=== PATIENT | male | born 1975 | race Caucasian/White ===

== ENCOUNTER 2016-11-30 21:58 | Inpatient (IN) | payer OTHER ==
[~2016-11-30] VITALS: Ht 182.9 cm; Wt 135.0 kg
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
--- NOTE | ~2016-11-30 | OR ---
PATIENT'S NAME: RODRÍGUEZ HEARN [facility] AGE: 41 Y [address] ROOM: [place] [address] LOCATION: [facility] ADMIT DATE: 11/30/2016 OR/Procedure Report DISCHARGE DATE: FAMILY PHYSICIAN: PHYSICIAN, UNKNOWN ATTENDING PHYSICIAN: ASHLEY GODOY V SURGEON: Rod Jenkins MD WEBSITE/BLOG EDITOR: Jeremiah Dunne PA-C. DATE OF PROCEDURE: 12/01/2016 PREOPERATIVE DIAGNOSIS: Right distal 1/3 tibia fracture with comminution and displacement in the presence of a previous well-healed midshaft fracture of the tibia and fibula. POSTOPERATIVE DIAGNOSIS: Right distal 1/3 tibia fracture with comminution and displacement in the presence of a previous well-healed midshaft fracture of the tibia and fibula. PROCEDURE: 1. Right tibial intramedullary nailing. 2. Use of intraoperative fluoroscopy, less than 1 hour. ANESTHESIA: General endotracheal anesthesia with peripheral nerve block. FLUIDS: See Anesthesia report. ESTIMATED BLOOD LOSS: Minimal. TOURNIQUET: Right proximal thigh, 250 mmHg. SPECIMEN: None. COMPLICATIONS: None. DISPOSITION: Stable in PACU. COUNTS: All counts correct. IMPLANTS: Synthes tibial intramedullary nail, 10 mm in diameter, 375 mm in length. INDICATIONS: Mr. Hearn is a pleasant 41-year-old gentleman who underwent the noted procedures above. The risks, benefits, and alternatives of pursuing surgical intervention were discussed with the patient in detail. The patient elected to proceed with surgery. Anesthesia was consulted for their perioperative evaluation of the patient. I marked the patient's right lower extremity indicating the correct surgical site. DESCRIPTION OF PROCEDURE: The patient was brought from the holding area to PATIENT'S NAME: RODRÍGUEZ HEARN [facility] AGE: 41 Y [address] ROOM: [address] [address] LOCATION: [facility] ADMIT DATE: 11/30/2016 OR/Procedure Report DISCHARGE DATE: FAMILY PHYSICIAN: PHYSICIAN, UNKNOWN ATTENDING PHYSICIAN: ASHLEY GODOY V the operating room. A time-out was performed. General endotracheal anesthesia was administered. Clindamycin antibiotic was administered for perioperative prophylaxis. The right lower extremity was then prepped and draped in a sterile fashion. I turned my attention to the right hip. An Esmarch was used to exsanguinate the limb. The tourniquet was inflated to 250 mmHg. I began with using a previous incision over the medial aspect of the knee through skin and subcutaneous tissue. I then placed a guidewire and confirmed its position fluoroscopically. I used an opening reamer to open up the proximal femoral canal. I used a ball-tip guidewire to negotiate down the fracture site. The bone was quite sclerotic, seeing that there had been a previous tibial nail in place and remodeling of an old fracture with subsequent removal of previous hardware. I confirmed the position of the pin in the tibia. I then turned my attention to the distal femur and then reamed sequentially up to 11.[address] a 10 nail. The nail was placed and its position was confirmed fluoroscopically. I drilled for, measured, and placed 2 distal interlocking screws in the nail to achieve distal fixation. I subsequently backslapped on the nail proximally to close down the fracture at the fracture site and achieved good compression fluoroscopically. I subsequently placed 2 static interlocking screws in the proximal nail by subsequently drilling, measuring, and placing them and confirming their position fluoroscopically. Final fluoroscopic images revealed evidence of a successful right tibial intramedullary nailing. Once the tibia was out to length, the fibula for the most part was also out to length and the fibula fracture was left in place. The visual anatomic alignment of the limb was within normal limits. There was a previous swelling of the leg as well as a shortening from his previous surgical intervention. All the wounds were then copiously irrigated with a normal sterile saline solution and closed in layers. The tourniquet was then let down and the leg reperfused. The patient was then transferred from to operating table onto the stretcher. Anesthesia did place a peripheral nerve block. He was subsequently extubated and brought to recovery room in stable condition. PATIENT'S NAME: RODRÍGUEZ HEARN [facility] AGE: 41 Y [address] ROOM: [address] [place] [id number] LOCATION: [facility] ADMIT DATE: 11/30/2016 OR/Procedure Report DISCHARGE DATE: FAMILY PHYSICIAN: PHYSICIAN, UNKNOWN ATTENDING PHYSICIAN: ASHLEY GODOY V There were no intraoperative complications noted. Of note, my PA, Jeremiah Dunne PA-C, played an integral role in the intraoperative care of this patient. This included preoperative positioning, intraoperative expert retraction, and closing and dressing functions. IMPRESSION: The patient is status post the noted procedures above. PLAN: The patient will be toe-touch weightbearing on the right lower extremity. Postoperative antibiotics will be administered per routine. He will be placed into a CAM walker boot. He was instructed to rest, ice, and elevate the leg. Postoperative antibiotics will be routine in nature. The Hospitalist Service will continue to manage the patient's concomitant medical comorbidities. Physical Therapy and Occupational Therapy will be consulted for early ambulation and prevention of deconditioning. I will continue to follow the patient closely in the postoperative period. MD SYLVIA ROBB/ashly /[id number] d: 12/01/168 t: 12/02/16 0855, OPERATIVE SUMMARY
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
[2016-12-01] MEDS ORDERED: FLEXERIL10 MG PO (00:12)
[2016-12-01] MEDS ORDERED: ULTRAM50 MG PO (00:13)
[2016-12-01] MEDS ORDERED: PRILOSEC20 MG PO (00:13)
--- NOTE | 2016-12-01 03:38 | NUR ---
Significant Event: PATIENT ALERT AND ORIENTED X 3. VSS. NPO FOR OR. VOIDING WITHOUT DIFFICULTY. BEDREST - REPOSTIONS SELF. IV INTACT TO LEFT ANTECUB. AIR SPLINT ON RIGHT LOWER LEG. RIGHT LOWER EXT ELEVATED WITH KNEE GATCH AND PILLOWS - MAXIMALLY ELEVATE AND ICE. [facility]'S Q 2 HOURS, REPORT ANY DEFECITS TO DR. ADAM. WATCH CLOSELT FOR COMPARTMENT SYNDROME. PAIN NOW CONTROLLED WITH MORPHINE DIESEL TRUCK TECHNICIAN AND FLEXERIL X 1 AT 0100. CSM'S WNL AT THIS TIME. PLEASANT AND COOPERTIVE WITH CARES. Follow up: OR
--- NOTE | 2016-12-01 19:12 | NUR ---
Significant Event:VSS, ETCO2 monitoring due to hx sleep apnea, O2 at 2L/NC. Lungs clear/diminshed. IS up to 2500 x 10. Pt on MS SLITTER SCORER 05/27/ no lockout. Pt rates pain 7-12/25. Remains on bedrest. Acewrap dsg is CDI, toes warm,tera well unable to assess pulses due to leg brace/dsgs. Sips of water. Follow up:Continue post op recovery. Monitor breathing, pain, I/O
--- NOTE | 2016-12-02 04:15 | NUR ---
Significant Event: Alert/oriented x3. Morphine SPRINKLER REPAIR TECHNICIAN 1mg dose/10 minute lockout, kept at same rate due to pain -12/25. Valium 2.5 mg IVP at 0200, will give another after 0. Ice applied. Can wiggle toes, warm, feels sensation. Voids well per urinal. VSS on 2 LPM per nasal cannula, ETCO2 mostly upper 30s to mid 40s. Dressing C/D/I. Watch closely for compartment syndrome. Toe Touch right. Shifts well in bed per self. Keep extremity raised. Follow up:
--- NOTE | 2016-12-02 05:00 | NUR ---
Ordered for CPAP 10 for gloria, talked with Pt around 2200. Pt refused at that time, stated that he did not wear a CPAP at home. Checked ETCO2 t/o shift, 30s-45. Continued t/o night on 2L maintained sats>90%.
[2016-12-02 05:33] LABS: BASOPHIL # 0.1 K/uL (0.0-0.2); BASOPHIL % 0.5 %; EOSINOPHIL # 0.2 K/uL (0.0-0.5); EOSINOPHIL % 2.5 %; HEMATOCRIT 36.4 % (37.0-53.0); HEMOGLOBIN 12.4 g/dL (12.0-17.0); IMMATURE GRANULOCYTE % 0.3 %; LYMPHOCYTE # 1.5 K/uL (0.8-4.0); LYMPHOCYTE % 15.8 %; MCH 31.5 pg (27.0-34.0); MCHC 34.1 gm/dL (32.0-36.5); MCV 92.4 fl (83.0-98.0); MONOCYTE # 0.8 K/uL (0.0-1.0); MONOCYTE % 8.3 %; NEUTROPHIL # (ANC) 6.8 K/uL (1.4-9.0); NEUTROPHIL % 72.6 %; NRBC % 0 /100WBC (0-0.00); PLATELET COUNT 165 K/uL (150-450); RBC 3.94 M/uL (4.00-6.00); RDW-CV 13.5 % (11.9-14.6); WBC 9.4 K/uL (4.0-11.0)
--- NOTE | 2016-12-02 10:23 | NUR ---
SPOKE TO PATIENT AND HIS SISTER AT THE BEDSIDE. INTRODUCED CM AND OUR ROLE. PATIENT AND HIS SISTER ARE UNSURE AT THIS TIME OF WHAT HIS DISCHARGE NEEDS WILL BE. CM WILL CONT TO FOLLOW NEEDED.
--- NOTE | 2016-12-02 18:57 | NUR ---
Significant Event:VSS, ETCO2 44-48, remains on 2L O2, sats 94-98. Pt has hx of sleep apnea, and is to be on BIPAP during times of sleep (naps & HS). Rates pain 6-10/10. Percocet 1 tab x 3 doses last one at 1635, Valium 2.5mg IV x 3 doses last one at 1635. Oxycontin 10mg at 0900, since dc'd. MS BANK COURIER 1mg off at 1630. Pt had 19mg, 20 demands in past 12hours. Pt states pain is stabbing, and throbbing at times. IBU 600mg at 1330 for headache with reported relief. Pt acewrap has old drainage at heel area. No increase in drainage today. Pt tx with SBA of 1, GB/Walker, Cam boot. Cam boot maybe off while in bed. FOB is to be elevated at all times. ICE to extremity. Toes warm, wiggle. Unable to asses pulses due dressings. Up in chairs for meals. Voids per urinal, last BM 11/30. Pt has hx of constipation. Started on lax today. Ate fair. Tx to Room 6326, for BIPAP use at sleep. Report to Mateus TRACY. BIPAP therapy Follow up:
--- NOTE | 2016-12-02 23:20 | NUR ---
Pt refused Bipap. Explained risk and benefits of using vs not using Bipap, still refused. Continued on ETCO2, will continue to monitor
--- NOTE | 2016-12-03 04:12 | NUR ---
Pt on 2L NC majority of shift, ETCO2 40s. Around 0330 ETCO2 increased>50. Discussed with Pt the need for Bipap. Placed on Bipap 16/7 and titrated up to 20/10 at 30% Fio2. Will continue to monitor as tolerated.
--- NOTE | 2016-12-03 05:54 | NUR ---
Significant Event: Patient A/O x 3. Perrl. Denies N/T. Wiggles toes to RLE. Pain to RLE, percocet last given at 0500 and Valium last given at 0240. 1 L of 02 while awake. 2 L NC while sleeping, Bipap put on at 0300. ETCO2 monitor on. BS active. Voids per urinal. Keep RLE elevated. Camboot on when up. Family at bedside. Follow up: Continue to monitor ETCO2
--- NOTE | 2016-12-03 12:10 | NUR ---
Significant Event:PT IS AAOX3. C/O TINGLING TO R) LEG. GOOD CAP REFILL. WIGGLES TOES. TOOK PERCOCET AND IBUPROFEN FOR PAIN. ALSO HAD MOM AND ZOFRAN TODAY. NO BM YET. ACTIVE BS. USES URINAL WITH NO ISSUE. UP TO CHAIR 1A PIVOT. TTWB TO R). ON 2L NC. DID TRY TO WEAN TO RA. SATS WENT DOWN TO 84%. POSSIBLE DC TOMORROW. GAVE JILLIAN FROM 3N REPORT. PT IS NOW IN ROOM [id number] Follow up:
--- NOTE | 2016-12-03 13:00 | NUR ---
RECEIVED REFERRAL THAT PATIENT WILL NEED DME WITH PLAN FOR DISCHARGE TOMORROW. I MEET WITH PATIENT AND HIS SISTER AT THE BEDSIDE. PATIENT IS PLANNING ON GOING HOME WITH HELP FROM FAMILY. I PRESENTED TO THEM THE OPTION OF C BUT THEY DECLINED. PATIENT'S SISTER IS PLANNING ON GETTING RODRÍGUEZ A FRONT WHEELED WALKER CLOSER TO HOME THEY DO NOT WANT TO PURCHASE ONE AND SHE TELLS ME THAT SHE CAN KAW IT. THEY WOULD LIKE TO HAVE ME ARRANGE FOR CRUTHCES. I EXPLAINED TO THEM THAT INSURANCE DOES NOT COVER ANY DME IT WOULD BE OUT OF POCKET EXPLENSE AND THEY ARE OK WITH THIS. I SPOKE TO JORGE AT [employer] SHE TELLS ME THAT INSURANCE WILL NOT COVER THE COST OF THE CRUTCHES BUT IF HE HAS A SCRIPT THAT HE WILL NOT HAVE TO PAY TAX ON THE CRUTCHES. PATIENT CAN RENT THEM FOR $25.00 A MONTH OR PURCHASE THEM FOR $49.00 A MONTH. I SPOKE TO PATIENT AND HIS SISTER AND INFORMED THEM OF THIS. THEY WOULD PREFERE TO PURCHSE THE CRUTCHES. ONCE THE SCRIPT HAS BEEN COMPLETED THE FAMILY WILL TAKE IT TO [employer] AND GET THE CRUTHCES [employer] WILL NOT DELIVER THEM. I FAXED INFO TO [employer] AND THEY WILL HAVE THE CRUTHCES READY FOR WHOMEVER PICKS THEM UP.
--- NOTE | 2016-12-03 14:06 | NUR ---
RECEIVED CALL FROM JORGE AT [employer] AND SHE HAS CHECKED FURTHER INTO THE [employer] SHE REPORTS THAT THEY DO NOT RENT CRUTCHES AND THE COST TO PURCHASE THEM IS $29.95 WILL UPDATE RODRÍGUEZ OF THIS.
--- NOTE | 2016-12-03 16:05 | NUR ---
Significant Event: pt arrived on floor from ntu at 1145. pt alert and oriented. ziyad wrap dressing to rt leg intact. some small dried blood on outer dressing. ice to leg. pt on etco2. rates pain at a 5. dressing changed today. takes percocet for pain. and ultram for headache. family in the room this shift. will probably be discharged tomorrrow. Follow up:\
--- NOTE | 2016-12-04 04:17 | NUR ---
Patient is alert and oriented, dressing is clean dry and intact, too have cam boot on when out of bed, ice in place to leg, foot has 2+ edema and using doppler to find pulse states right leg has some tingling, transfers well one assist with walker and gaitbelt, has medium bm this shift, plans to go home today
[2016-12-04 06:12] LABS: HEMATOCRIT 35.5 % (37.0-53.0); HEMOGLOBIN 12.2 g/dL (12.0-17.0)
[2016-12-04 06:28] LABS: ANION GAP 9.1 (10.0-19.0); BLOOD UREA NITROGEN 9 mg/dL (6-24); CALCIUM 8.1 mg/dL (8.5-10.5); CHLORIDE 102 mMol/L (96-110); CO2 30 mMol/L (22-32); CREATININE 0.9 mg/dL (0.6-1.3); MAGNESIUM 2.6 mg/dL (1.8-2.6); POTASSIUM 4.1 mMol/L (3.7-5.1); SODIUM 137 mMol/L (135-145)
--- NOTE | 2016-12-04 15:00 | NUR ---
SPOKE TO RODRÍGUEZ'S MOM SHE IS PLANNING ON GOING TO [place] AND GET THE CHRUTCHES TODAY SO THAT HE CAN WORK WITH THERAPY ON THEM PRIOR TO DISCHARGE TOMORROW. RODRÍGUEZ AND HIS MOM DENIE ANY OTHER DISCHARGE NEEDS.
--- NOTE | 2016-12-04 15:30 | NUR ---
Significant Event: PT ALERT AND ORIENTED. UP IN THE ROOM WITH 1 ASSIST USES CRUTCHES AND CAM BOOT. PERCOCET FOR PAIN THIS AM. VALIUM AND TORADOL GIVEN LAST NIGHT. NONE TODAY. PT NEEDS 02 WHEN SLEEPING. FOUND AT 76%. ENCOURAGE TO WEAR CPAP MACHINE. FAMILY IN THE ROOM AT INTERVALS. Follow up:
--- NOTE | 2016-12-05 04:03 | NUR ---
Significant Event: A&Ox3, VSS on 1L O2, CPAP at night. Edema to right foot noted. Pulse dopplared. Wiggles toes and complains of burning. Ice off and on all night. Elevated extremitiy. Patient repositions self. Up to bathroom with 1PA with crutches. Moves well. Follow up: D/C to home today.
[2016-12-05] MEDS ORDERED: COLACE100 MG PO (14:03)
[2016-12-05] MEDS ORDERED: LOVENOX 4040 MG/0.4 SUB-Q (14:05)
[2016-12-05] MEDS ORDERED: MIRALAX17 GM PO (14:06)
[2016-12-05] MEDS ORDERED: MILK OF MA400 MG/5 M PO (14:07)
[2016-12-05] MEDS ORDERED: ZOFRAN4 M1 SL (14:08)
[2016-12-05] MEDS ORDERED: PERCOCET 5-3251 EACH PO (14:09)
--- NOTE | 2016-12-05 15:41 | NUR ---
PT AND HIS FAMILY GIVEN DISCHARGE INSTRUCTIONS AND VOICES UNDERSTANDING. DRESSING SUPPLIES SENT HOME FOR 3 DRESSING CHANGES. MEDICATIONS REVIEWED AND PAIN MEDS AND NAUSEA MEDS GIVEN PRIOR TO DISCHARGE. ESCORTED TO THE FRONT DOOR BY TRANSPORT STAFF. FAMILY AT PT'S SIDE.
== END 2016-12-05 15:26 | disposition disaster alternative care site (69) | DRG 493 ==
LOC: GACC 21:58 → G3N 22:53 → GICU 12-02 18:30 → G3N 12-03 11:40
PROVIDERS: Internal Medicine; ADMIT Internal Medicine
PROC: 0QHG36Z Insertion of Intramedullary Internal Fixation Device into Right Tibia, Percutaneous Approach (ICD-10-PCS; principal; 2016-12-01)
PROC: 5A09457 Assistance with Respiratory Ventilation, 24-96 Consecutive Hours, Continuous Positive Airway Pressure (ICD-10-PCS; 2016-12-02)
DX: S82.391A Other fracture of lower end of right tibia, initial encounter for closed fracture (principal); Z68.41 Body mass index [BMI] 40.0-44.9, adult; I10 Essential (primary) hypertension; S82.831A Other fracture of upper and lower end of right fibula, initial encounter for closed fracture; S92.302S Fracture of unspecified metatarsal bone(s), left foot, sequela; M12.572 Traumatic arthropathy, left ankle and foot; V92.03XA Drowning and submersion due to fall off other powered watercraft, initial encounter; E66.01 Morbid (severe) obesity due to excess calories; G47.33 Obstructive sleep apnea (adult) (pediatric); K21.9 Gastro-esophageal reflux disease without esophagitis; Z87.81 Personal history of (healed) traumatic fracture
CPT/HCPCS: C1713; J1170; J1650; J2270; J2405; J2765; J3010; J3360; J7030; J7042; J7050; Q0162